=== PATIENT | female | born 1970 | race American Indian/Alaskan Native ===

== ENCOUNTER 2017-04-06 08:53 | Outpatient (CLI) | payer BC, MEDICAID, MEDICARE ==
--- NOTE | 2017-04-06 10:58 | XRay Report ---
Bilateral hand: Findings: No bony or articular abnormality metacarpals, carpals and the phalangeal of joints. No periosteal reaction or lytic lesion or soft tissue calcification. No fracture. Impression: No bony or articular abnormality I cannot.
== END 2017-04-06 08:54 | disposition home or self-care (01) ==
LOC: SPVIMAG 08:53
PROVIDERS: ATTEND Orthopaedic Surgery
DX: M25.541 Pain in joints of right hand (principal); M25.542 Pain in joints of left hand